=== PATIENT | male | born 1980 | race Caucasian/White ===

== ENCOUNTER 2021-04-27 19:39 | Emergency (ER) | payer OTHER ==
[~2021-04-27] VITALS: Ht 185.4 cm; Wt 82.6 kg
[2021-04-27] MEDS ORDERED: ALLEGRA ALLERGY60 MG (20:10)
== END 2021-04-27 22:26 | disposition home or self-care (01) ==
LOC: ER 19:39
DX: S21.112A Laceration without foreign body of left front wall of thorax without penetration into thoracic cavity, initial encounter (principal); W26.0XXA Contact with knife, initial encounter; Y93.G3 Activity, cooking and baking; Y92.010 Kitchen of single-family (private) house as the place of occurrence of the external cause; Y99.8 Other external cause status